=== PATIENT | female | born 1950 | race Caucasian/White ===

== ENCOUNTER 2019-06-05 08:49 | Observation (INO) | payer BC, MEDICARE ==
--- NOTE | 2019-06-05 09:52 | CR ---
INDICATION: Cough COMPARISON: none TECHNIQUE: Two view chest. FINDINGS: The lungs are clear. The heart, mediastinum and pulmonary vessels are of normal size. There is no evidence of pleural fluid. IMPRESSION: Negative chest. Dictated by Gerry Ruby MD @ Jun 05 2019 9:50AM Signed by Dr. Gerry Ruby @ Jun 05 2019 9:51AM
[2019-06-05] MEDS ORDERED: Aspirin 81 MG Tab.Chew PO ONE (10:04)
--- NOTE | 2019-06-05 10:04 | EDM.PDOC ---
ED HPI GENERAL MEDICAL PROBLEM - General Chief Complaint: Respiratory Problem Stated Complaint: COUGH Time Seen by Provider: 06/05/19 09:55 - History of Present Illness INITIAL COMMENTS - FREE TEXT/NARRATIVE: HISTORY AND PHYSICAL: History of present illness: Patient 68-year-old white female presents with a concern of shortness of breath chest pain that she describes as pleuritic worse over last 24-40 hours there's been no palpitations diaphoresis or associated nausea vomiting she denies prior UT or CVA. Review of systems: As per history of present illness and below otherwise all systems reviewed and negative. Past medical history: As per history of present illness and as reviewed below otherwise noncontributory. Surgical history: As per history of present illness and as reviewed below otherwise noncontributory. Social history: No reported history of drug or alcohol abuse. Family history: As per history of present illness and as reviewed below otherwise noncontributory. Physical exam: HEENT: Atraumatic, normocephalic, pupils reactive, negative for conjunctival pallor or scleral icterus, mucous membranes moist, throat clear, neck supple, nontender, trachea midline. Lungs: Clear to auscultation, breath sounds equal bilaterally, chest nontender. Heart: S1S2, regular, negative for clicks, rubs, or JVD. Abdomen: Soft, nondistended, nontender. Negative for masses or hepatosplenomegaly. Negative for costovertebral tenderness. Pelvis: Stable nontender. Genitourinary: Deferred. Rectal: Deferred. Extremities: Atraumatic, negative for cords or calf pain. Neurovascular unremarkable. Neuro: Awake, alert, oriented. Cranial nerves II through XII unremarkable. Cerebellum unremarkable. Motor and sensory unremarkable throughout. Exam nonfocal. Diagnostics: CBC CMP troponin PT/INR chest x-ray EKG d-dimer Therapeutics: IV O2 monitor Impression: #1 chest pain #2 dyspnea Definitive disposition and diagnosis as appropriate pending reevaluation and review of above. 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 Musculoskeletal History: Reports: None Neurological History: Reports: None Psychiatric History: Reports: None Endocrine/Metabolic History: Reports: None Dermatologic History: Reports: None - Infectious Disease History Infectious Disease History: Reports: Chicken Pox, Measles, Mumps Social & Family History - Family History Family Medical History: Noncontributory - Tobacco Use Smoking Status *Q: Current Every Day Smoker Years of Tobacco use: 45 Packs/Tins Daily: 1 - Caffeine Use Caffeine Use: Reports: Coffee - Recreational Drug Use Recreational Drug Use: No ED ROS GENERAL - Review of Systems Review Of Systems: ROS reveals no pertinent complaints other than HPI. ED EXAM, GENERAL - Physical Exam Exam: See Below (See dictation) Course - Vital Signs Last Recorded V/S: Last Vital Signs Temp 36.4 C 06/05/19 09:07 Pulse 76 06/05/19 12:06 Resp 17 06/05/19 12:06 BP 114/47 L 06/05/19 12:06 Pulse Ox 98 06/05/19 10:09 - Orders/Labs/Meds Orders: Active Orders 24 hr Category Date Time Status EKG 12 Lead [EKG Documentation Completion] [RC] STAT Care 06/05/19 09:10 Active Labs: Laboratory Tests 06/05/19 06/05/19 06/05/19 Range/Units 09:16 09:16 09:16 WBC 12.50 H (4.0-11.0) K/uL RBC 4.03 L (4.30-5.90) M/uL Hgb 13.9 (12.0-16.0) g/dL Hct 40.7 (36.0-46.0) % MCV 101.0 H (80.0-98.0) fL MCH 34.5 H (27.0-32.0) pg MCHC 34.2 (31.0-37.0) g/dL RDW Std Deviation 49.4 (28.0-62.0) fl RDW Coeff of Samy 13 (11.0-15.0) % Plt Count 167 (150-400) K/uL MPV 11.10 (7.40-12.00) fL Neut % (Auto) 77.8 (48.0-80.0) % Lymph % (Auto) 8.8 L (16.0-40.0) % [place] % (Auto) 12.6 (0.0-15.0) % Eos % (Auto) 0.6 (0.0-7.0) % Baso % (Auto) 0.2 (0.0-1.5) % Neut # (Auto) 9.7 H (1.4-5.7) K/uL Lymph # (Auto) 1.1 (0.6-2.4) K/uL [place] # (Auto) 1.6 H (0.0-0.8) K/uL Eos # (Auto) 0.1 (0.0-0.7) K/uL Baso # (Auto) 0.0 (0.0-0.1) K/uL Nucleated RBC % 0.0 /100WBC Nucleated RBCs # 0 K/uL INR D-Dimer, Quantitative 1.66 H (0.0-0.50) mg/L FEU Sodium 133 L (136-145) mmol/L Potassium 3.9 (3.5-5.1) mmol/L Chloride 99 (98-107) mmol/L Carbon Dioxide 26.6 (21.0-32.0) mmol/L BUN 7 (7.0-18.0) mg/dL Creatinine 0.7 (0.6-1.0) mg/dL Est Cr Clr Drug Dosing 59.65 mL/min Estimated GFR (MDRD) > 60.0 ml/min Glucose 114 H (74-106) mg/dL Calcium 9.5 (8.5-10.1) mg/dL Total Bilirubin 0.8 (0.2-1.0) mg/dL AST 39 H (15-37) IU/L ALT 37 (14-63) IU/L Alkaline Phosphatase 108 (46-116) U/L Troponin I < 0.050 (0.000-0.056) ng/mL Total Protein 7.0 (6.4-8.2) g/dL Albumin 3.2 L (3.4-5.0) g/dL Globulin 3.8 (2.6-4.0) g/dL Albumin/Globulin Ratio 0.8 L (0.9-1.6) 06/05/19 Range/Units 09:16 WBC (4.0-11.0) K/uL RBC (4.30-5.90) M/uL Hgb (12.0-16.0) g/dL Hct (36.0-46.0) % MCV (80.0-98.0) fL MCH (27.0-32.0) pg MCHC (31.0-37.0) g/dL RDW Std Deviation (28.0-62.0) fl RDW Coeff of Samy (11.0-15.0) % Plt Count (150-400) K/uL MPV (7.40-12.00) fL Neut % (Auto) (48.0-80.0) % Lymph % (Auto) (16.0-40.0) % [place] % (Auto) (0.0-15.0) % Eos % (Auto) (0.0-7.0) % Baso % (Auto) (0.0-1.5) % Neut # (Auto) (1.4-5.7) K/uL Lymph # (Auto) (0.6-2.4) K/uL [place] # (Auto) (0.0-0.8) K/uL Eos # (Auto) (0.0-0.7) K/uL Baso # (Auto) (0.0-0.1) K/uL Nucleated RBC % /100WBC Nucleated RBCs # K/uL INR 0.98 D-Dimer, Quantitative (0.0-0.50) mg/L FEU Sodium (136-145) mmol/L Potassium (3.5-5.1) mmol/L Chloride (98-107) mmol/L Carbon Dioxide (21.0-32.0) mmol/L BUN (7.0-18.0) mg/dL Creatinine (0.6-1.0) mg/dL Est Cr Clr Drug Dosing mL/min Estimated GFR (MDRD) ml/min Glucose (74-106) mg/dL Calcium (8.5-10.1) mg/dL Total Bilirubin (0.2-1.0) mg/dL AST (15-37) IU/L ALT (14-63) IU/L Alkaline Phosphatase (46-116) U/L Troponin I (0.000-0.056) ng/mL Total Protein (6.4-8.2) g/dL Albumin (3.4-5.0) g/dL Globulin (2.6-4.0) g/dL Albumin/Globulin Ratio (0.9-1.6) Meds: Medications Discontinued Medications Generic Name Dose Route Start Last Admin Trade Name Rafael PRN Reason Stop Dose Admin Aspirin 324 mg 06/05/19 10:04 06/05/19 10:09 Aspirin PO 06/05/19 10:05 324 mg ONETIME ONE Administration Iopamidol 50 ml 06/05/19 11:07 06/05/19 11:07 Isovue Multipack-370 (76%) IVPUSH 06/05/19 11:08 50 ml ONETIME STA Administration Departure - Departure Time of Disposition: 12:11 Disposition: Refer to Observation Condition: Good Clinical Impression: Pneumonia, Atypical chest pain - Discharge Information Referrals: PCP,None [Primary Care Provider] - Forms: ED Department Discharge - My Orders Last 24 Hours: My Active Orders 06/05/19 09:10 EKG 12 Lead [EKG Documentation Completion] [RC] STAT - Assessment/Plan Last 24 Hours: My Active Orders 06/05/19 09:10 EKG 12 Lead [EKG Documentation Completion] [RC] STAT
[2019-06-05 10:41] LABS: CHLORIDE,CL 99 mmol/L (98-107); SODIUM,NA 133 mmol/L (136-145)
[2019-06-05] MEDS ORDERED: Iopamidol 755 MG/ML 500 ML Multipack Bottle IVPUSH STA (11:07)
--- NOTE | 2019-06-05 11:42 | CT ---
INDICATION: Cough for 3 weeks and chest pressure and back pain for 2 days. D-dimer 1.66. TECHNIQUE: Contrast enhanced helical CT of the chest with the intravenous administration of 50 cc of Isovue-370. Sagittal and coronal reformats generated. Please note that all CT scans at this facility use dose modulation, iterative reconstruction and/or weight-based dosing when appropriate to reduce radiation dose to as low as reasonably achievable. FINDINGS: No obvious thyroid nodules. No suspicious axillary lymph nodes are seen with multiple small nodes noted. Scattered small bilateral hilar and mediastinal lymph nodes are nonspecific. The thoracic aorta is normal in caliber. No pulmonary emboli are identified. No pleural or pericardial effusions are seen. Scattered patchy ground-glass opacities throughout the lungs with and area of consolidation in the medial lingula. The lung bases were incompletely imaged. Mild pulmonary emphysematous changes were present. IMPRESSION: 1. No pulmonary emboli identified. 2. Scattered multi focal ground-glass opacities in area of consolidation in the medial lingula. Acute infectious or inflammatory etiologies considerations. Consider repeat high-resolution chest CT in 4-6 weeks following therapy. 3. Mild mediastinal bilateral hilar lymphadenopathy may be reactive in nature. Sarcoidosis would be an additional consideration. Please note that all CT scans at this facility use dose modulation, iterative reconstruction, and/or weight-based dosing when appropriate to reduce radiation dose to as low as reasonably achievable. Dictated by Kp Álvarez MD @ Jun 05 2019 11:32AM Signed by Dr. Kp Álvarez @ Jun 05 2019 11:40AM
[2019-06-05] MEDS ORDERED: cefTRIAXone 1 GM in Premix Bag 1 BAG IV ONE (12:11)
[2019-06-05] MEDS ORDERED: Azithromycin 500 MG in Sodium Chloride 0.9% 250 ML IV SCH (12:15)
[2019-06-05] MEDS ORDERED: Albuterol/Ipratropium 3.0-0.5 MG/3 ML Neb Soln NEB PRN (12:58)
[2019-06-05] MEDS ORDERED: Acetaminophen 325 MG Tab PO PRN (12:58)
[2019-06-05] MEDS ORDERED: Ondansetron 4 MG Tab.DIS PO PRN (12:58)
[2019-06-05] MEDS ORDERED: Enoxaparin 30 MG/0.3 ML Syringe SUBCUT SCH (13:00)
--- NOTE | 2019-06-05 13:03 | PCM.HP.2 ---
H&P History of Present Illness - General Date of Service: 06/05/19 Admit Problem/Dx: Admission Diagnosis/Problem Admission Diagnosis/Problem Pneumonia Source of Information: Patient History Limitations: Reports: No Limitations - History of Present Illness Initial Comments - Free Text/Narative: The patient is an otherwise healthy 68-year-old lady who had presented to the emergency department with inability to take a deep breath. Patient says that she has had this feeling for the past several days. She is denied any fever or chills. She has had a cough that has been productive of minimal amounts of sputum. She is a cigarette smoker. The patient has denied any nausea or vomiting. No recent travel. The patient has essentially no past medical history and only has been taking aspirin 81 mg by mouth daily. Onset of Symptoms: Reports: Gradual Duration of Symptoms: Reports: Day(s): Location: Reports: Chest Quality: Reports: Ache Severity: Mild Improves with: Reports: None Worsens with: Reports: None Associated Symptoms: Reports: cough w sputum Chest Pain Score (Numeric/FACES): 5 - Related Data Allergies/Adverse Reactions: Allergies Allergy/AdvReac Type Severity Reaction Status Date / Time No Known Allergies Allergy Verified 06/05/19 09:06 Home Medications: Home Meds Aspirin 81 mg PO DAILY 06/05/19 [History] Past Medical History HEENT History: Reports: None Cardiovascular History: Reports: None Respiratory History: Reports: None Gastrointestinal History: Reports: None Genitourinary History: Reports: None [employer]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 Musculoskeletal History: Reports: None Neurological History: Reports: None Psychiatric History: Reports: None Endocrine/Metabolic History: Reports: None Hematologic History: Reports: None Immunologic History: Reports: None Oncologic (Cancer) History: Reports: None Dermatologic History: Reports: None - Infectious Disease History Infectious Disease History: Reports: Chicken Pox, Measles, Mumps Social & Family History - Family History Family Medical History: Noncontributory - Tobacco Use Smoking Status *Q: Current Every Day Smoker Years of Tobacco use: 45 Packs/Tins Daily: 1 - Caffeine Use Caffeine Use: Reports: Coffee - Alcohol Use Alcohol Use History: Yes Alcohol Use Frequency: Daily - Recreational Drug Use Recreational Drug Use: No - Living Situation & Occupation Living situation: Reports: , with Spouse Occupation: Retired H&P Review of Systems - Review of Systems: Review Of Systems: See Below General: Reports: No Symptoms HEENT: Reports: No Symptoms Pulmonary: Reports: Shortness of Breath, Cough, Sputum Cardiovascular: Reports: Chest Pain Gastrointestinal: Reports: No Symptoms Genitourinary: Reports: No Symptoms Musculoskeletal: Reports: No Symptoms Skin: Reports: No Symptoms Psychiatric: Reports: No Symptoms Neurological: Reports: No Symptoms Hematologic/Lymphatic: Reports: No Symptoms Immunologic: Reports: No Symptoms Exam - Exam Exam: See Below - Vital Signs Vital Signs: Last Vital Signs Temp 36.4 C 06/05/19 09:07 Pulse 76 06/05/19 12:06 Resp 17 06/05/19 12:06 BP 114/47 L 06/05/19 12:06 Pulse Ox 98 06/05/19 10:09 Weight: 49.895 kg - Exam Quality Assessment: No: Supplemental Oxygen General: Alert, Oriented, Cooperative HEENT: Conjunctiva Clear, EACs Clear, EOMI, Pupils Equal, PERRLA. No: Mucosa Moist & [place] (Dry) Neck: Supple, Trachea Midline Lungs: Clear to Auscultation, Decreased Breath Sounds Cardiovascular: Regular Rate, Regular Rhythm GI/Abdominal Exam: Normal Bowel Sounds, Soft, No Distention Back Exam: Normal Inspection, Full Range of Motion Extremities: Normal Inspection, No Pedal Edema Skin: Warm, Dry, Intact Neurological: Cranial Nerves Intact, Normal Gait Neuro Extensive - Mental Status: Alert, Oriented x3 Psychiatric: Alert, Normal Affect - Patient Data Lab Results Last 24 hrs: Laboratory Results - last 24 hr 06/05/19 06/05/19 06/05/19 Range/Units 09:16 09:16 09:16 WBC 12.50 H (4.0-11.0) K/uL RBC 4.03 L (4.30-5.90) M/uL Hgb 13.9 (12.0-16.0) g/dL Hct 40.7 (36.0-46.0) % MCV 101.0 H (80.0-98.0) fL MCH 34.5 H (27.0-32.0) pg MCHC 34.2 (31.0-37.0) g/dL RDW Std Deviation 49.4 (28.0-62.0) fl RDW Coeff of Samy 13 (11.0-15.0) % Plt Count 167 (150-400) K/uL MPV 11.10 (7.40-12.00) fL Neut % (Auto) 77.8 (48.0-80.0) % Lymph % (Auto) 8.8 L (16.0-40.0) % [place] % (Auto) 12.6 (0.0-15.0) % Eos % (Auto) 0.6 (0.0-7.0) % Baso % (Auto) 0.2 (0.0-1.5) % Neut # (Auto) 9.7 H (1.4-5.7) K/uL Lymph # (Auto) 1.1 (0.6-2.4) K/uL [place] # (Auto) 1.6 H (0.0-0.8) K/uL Eos # (Auto) 0.1 (0.0-0.7) K/uL Baso # (Auto) 0.0 (0.0-0.1) K/uL Nucleated RBC % 0.0 /100WBC Nucleated RBCs # 0 K/uL INR D-Dimer, Quantitative 1.66 H (0.0-0.50) mg/L FEU Sodium 133 L (136-145) mmol/L Potassium 3.9 (3.5-5.1) mmol/L Chloride 99 (98-107) mmol/L Carbon Dioxide 26.6 (21.0-32.0) mmol/L BUN 7 (7.0-18.0) mg/dL Creatinine 0.7 (0.6-1.0) mg/dL Est Cr Clr Drug Dosing 59.65 mL/min Estimated GFR (MDRD) > 60.0 ml/min Glucose 114 H (74-106) mg/dL Calcium 9.5 (8.5-10.1) mg/dL Total Bilirubin 0.8 (0.2-1.0) mg/dL AST 39 H (15-37) IU/L ALT 37 (14-63) IU/L Alkaline Phosphatase 108 (46-116) U/L Troponin I < 0.050 (0.000-0.056) ng/mL Total Protein 7.0 (6.4-8.2) g/dL Albumin 3.2 L (3.4-5.0) g/dL Globulin 3.8 (2.6-4.0) g/dL Albumin/Globulin Ratio 0.8 L (0.9-1.6) 06/05/19 Range/Units 09:16 WBC (4.0-11.0) K/uL RBC (4.30-5.90) M/uL Hgb (12.0-16.0) g/dL Hct (36.0-46.0) % MCV (80.0-98.0) fL MCH (27.0-32.0) pg MCHC (31.0-37.0) g/dL RDW Std Deviation (28.0-62.0) fl RDW Coeff of Samy (11.0-15.0) % Plt Count (150-400) K/uL MPV (7.40-12.00) fL Neut % (Auto) (48.0-80.0) % Lymph % (Auto) (16.0-40.0) % [place] % (Auto) (0.0-15.0) % Eos % (Auto) (0.0-7.0) % Baso % (Auto) (0.0-1.5) % Neut # (Auto) (1.4-5.7) K/uL Lymph # (Auto) (0.6-2.4) K/uL [place] # (Auto) (0.0-0.8) K/uL Eos # (Auto) (0.0-0.7) K/uL Baso # (Auto) (0.0-0.1) K/uL Nucleated RBC % /100WBC Nucleated RBCs # K/uL INR 0.98 D-Dimer, Quantitative (0.0-0.50) mg/L FEU Sodium (136-145) mmol/L Potassium (3.5-5.1) mmol/L Chloride (98-107) mmol/L Carbon Dioxide (21.0-32.0) mmol/L BUN (7.0-18.0) mg/dL Creatinine (0.6-1.0) mg/dL Est Cr Clr Drug Dosing mL/min Estimated GFR (MDRD) ml/min Glucose (74-106) mg/dL Calcium (8.5-10.1) mg/dL Total Bilirubin (0.2-1.0) mg/dL AST (15-37) IU/L ALT (14-63) IU/L Alkaline Phosphatase (46-116) U/L Troponin I (0.000-0.056) ng/mL Total Protein (6.4-8.2) g/dL Albumin (3.4-5.0) g/dL Globulin (2.6-4.0) g/dL Albumin/Globulin Ratio (0.9-1.6) Result Diagrams: 06/05/19 09:16 06/05/19 09:16 - Problem List (1) Pneumonia SNOMED Code(s): 788491653 ICD Code: J18.9 - PNEUMONIA, UNSPECIFIED ORGANISM Status: Acute Priority : High Current Visit: Yes Qualifiers: Pneumonia type: due to unspecified organism Laterality: bilateral Lung location: unspecified part of lung Qualified Code(s): J18.9 - Pneumonia, unspecified organism (2) Atypical chest pain SNOMED Code(s): 399779954 ICD Code: R07.89 - OTHER CHEST PAIN Status: Acute Priority: High Current Visit: Yes (3) Elevated d-dimer SNOMED Code(s): 881150484 ICD Code: R79.89 - OTHER SPECIFIED ABNORMAL FINDINGS OF BLOOD CHEMISTRY Status: Acute Priority: High Current Visit: Yes (4) Tobacco use SNOMED Code(s): 424600877 ICD Code: Z72.0 - TOBACCO USE Status: Chronic Priority: High Current Visit: Yes Problem List Initiated/Reviewed/Updated: Yes Orders Last 24hrs: Active Orders 24 hr Category Date Time Status Patient Status [ADT] Stat ADT 06/05/19 12:12 Active EKG 12 Lead [EKG Documentation Completion] [RC] STAT Care 06/05/19 09:10 Active Oxygen Therapy [RC] PRN Care 06/05/19 12:52 Ordered Oxygen Therapy [RC] PRN Care 06/05/19 12:58 Ordered RT Aerosol Therapy [RC] ASDIRECTED Care 06/05/19 13:00 Ordered Up ad Brigid [RC] ASDIRECTED Care 06/05/19 12:52 Ordered VTE/DVT Education [RC] PER UNIT ROUTINE Care 06/05/19 12:52 Ordered VTE/DVT Education [RC] PER UNIT ROUTINE Care 06/05/19 12:58 Ordered Vital Signs [RC] Q4H Care 06/05/19 12:52 Ordered Vital Signs [RC] Q4H Care 06/05/19 12:58 Ordered Regular Diet [DIET] Diet 06/05/19 Dinner Ordered CBC WITH AUTO DIFF [HEME] AM Lab 06/06/19 05:11 Ordered COMPREHENSIVE METABOLIC PN,CMP [CHEM] AM Lab 06/06/19 05:11 Ordered CULTURE BLOOD [BC] Stat Lab 06/05/19 12:17 Ordered CULTURE BLOOD [BC] Stat Lab 06/05/19 12:35 Received Acetaminophen [Tylenol] Med 06/05/19 12:58 Ordered 650 mg PO Q4H PRN Albuterol/Ipratropium [DuoNeb 3.0-0.5 MG/3 ML] Med 06/05/19 12:58 Ordered 3 ml NEB Q4HRRT PRN Aspirin Med 06/06/19 09:00 Ordered 81 mg PO DAILY Azithromycin [Zithromax] 500 mg Med 06/05/19 12:15 Active Sodium Chloride 0.9% [Normal Saline (AdvBag)] 250 ml IV ONETIME Enoxaparin [Lovenox] Med 06/05/19 13:00 Ordered 30 mg SUBCUT Q24H Nicotine [Habitrol] Med 06/05/19 13:00 Ordered 14 mg TRDERM DAILY Ondansetron [Zofran ODT] Med 06/05/19 12:58 Ordered 4 mg PO Q4H PRN Sodium Chloride 0.9% [Normal Saline] 1,000 ml Med 06/05/19 13:00 Ordered IV ASDIRECTED cefTRIAXone [Rocephin] 1 gm Med 06/06/19 09:00 Ordered Sodium Chloride 0.9% [Normal Saline] 50 ml IV Q24H Blood Culture x2 Reflex Set [OM.PC] Stat Oth 06/05/19 12:16 Ordered Resuscitation Status Routine Resus Stat 06/05/19 12:52 Ordered Medication Orders Acetaminophen (Tylenol) 650 mg PO Q4H PRN PRN Reason: Pain (Mild 1-3)/fever Albuterol/Ipratropium (Duoneb 3.0-0.5 Mg/3 Ml) 3 ml NEB Q4HRRT PRN PRN Reason: Shortness Of Breath/wheezing Aspirin (Aspirin) 81 mg PO DAILY CALLIE Enoxaparin Sodium (Lovenox) 30 mg SUBCUT Q24H CALLIE Azithromycin 500 mg/ Sodium (Chloride) 250 mls @ 250 mls/hr IV ONETIME CALLIE Sodium Chloride (Normal Saline) 1,000 mls @ 75 mls/hr IV ASDIRECTED CALLIE Ceftriaxone Sodium 1 gm/ (Sodium Chloride) 50 mls @ 100 mls/hr IV Q24H [facility] Nicotine (Habitrol) 14 mg TRDERM DAILY [facility] Ondansetron HCl (Zofran Odt) 4 mg PO Q4H PRN PRN Reason: nausea, able to take PO Assessment/Plan Comment:: The patient also notes otherwise healthy 68-year-old lady who has been admitted secondary to pneumonia which is likely atypical. The patient has been started on Rocephin and this will be restarted. The patient also has been given a nicotine patch 14 mg transdermal daily to assist with tobacco withdrawal. I have reviewed the CT scan and this is indicated several areas of patchy infiltrates in different lobes. It has been recommended that patient follow up with primary care physician and at least 6-8 weeks in order to repeat CT scan to help exclude neoplastic process. There is concern for her d-dimer being elevated and there is no evidence of pulmonary emboli on the CT scan. The patient will also be anticoagulated with Lovenox 30 mg subcutaneous on a daily basis. Repeat laboratory studies have been ordered. The patient should be appropriate for discharge tomorrow. She does not require oxygen support at this time. - Mortality Measure Prognosis:: Good
[2019-06-05] MEDS: Sodium Chloride 0.9% 1,000 ML IV SCH (13:40)
[2019-06-05] MEDS: Nicotine 14 MG/24 Hr Patch TRDERM SCH (14:34)
[2019-06-05] MEDS: Codeine/guaiFENesin 100-10 MG/5 ML Syrup 5 ML Cup PO PRN (21:30)
[2019-06-06] MEDS: Codeine/guaiFENesin 100-10 MG/5 ML Syrup 5 ML Cup PO PRN (03:38)
[2019-06-06] MEDS: Sodium Chloride 0.9% 1,000 ML IV SCH (03:44)
[2019-06-06 07:08] LABS: CHLORIDE,CL 105 mmol/L (98-107); SODIUM,NA 140 mmol/L (136-145)
--- NOTE | 2019-06-06 07:56 | PCM.DCSUM1 ---
Discharge Summary - Hospital Course Free Text/Narrative:: Multifocal pneumonia, shortness of breath Diagnosis: Stroke: No - Discharge Data Discharge Date: 06/06/19 Discharge Disposition: Home, Self-Care 01 Condition: Good - Discharge Diagnosis/Problem(s) (1) Pneumonia SNOMED Code(s): 797320956 ICD Code: J18.9 - PNEUMONIA, UNSPECIFIED ORGANISM Status: Acute Priority : High Current Visit: Yes Qualifiers: Pneumonia type: due to unspecified organism Laterality: bilateral Lung location: unspecified part of lung Qualified Code(s): J18.9 - Pneumonia, unspecified organism (2) Atypical chest pain SNOMED Code(s): 805490596 ICD Code: R07.89 - OTHER CHEST PAIN Status: Resolved Priority: High Current Visit: Yes (3) Elevated d-dimer SNOMED Code(s): 078824761 ICD Code: R79.89 - OTHER SPECIFIED ABNORMAL FINDINGS OF BLOOD CHEMISTRY Status: Acute Priority: High Current Visit: Yes (4) Tobacco use SNOMED Code(s): 463619362 ICD Code: Z72.0 - TOBACCO USE Status: Chronic Priority: High Current Visit: Yes - Patient Summary/Data Hospital Course: The patient is an otherwise healthy 68-year-old lady who presented to the emergency department with an inability to take a deep breath and said that she had had this feeling for past several days. During the patient's hospitalization she has not required oxygen support. The patient also had a CT scan of her chest to help exclude pulmonary emboli due to elevated d-dimer and this did not show any pulmonary emboli. There was however noted scattered multifocal groundglass opacities in the medial lingula thought to be acute infectious or inflammatory considerations. As recommended that the patient have a high CT contrast within 4-6 weeks to help exclude neoplasm. The patient initially had been started on Rocephin and she had tolerated this well. The patient also had albuterol/Atrovent SVNs and this had improved her symptomology. Cultures thus far are negative. During the short course of hospitalization the patient had continued to improve. She had been ambulating well. The patient said that her breathing had improved. She felt like she can go home. The patient will be discharged home with Levaquin 500 mg by mouth daily for the next 5 days as well as codeine and Phenergan cough syrup to help suppress her cough and alleviate some pain. The patient has been tolerating her diet and she is recommended to continue with her heart healthy diet as tolerated. The patient is also have activity as tolerated. Further, it is recommended that the patient have a PFT as follow-up with her primary care physician once she has improved to her baseline. It is also been recommended that she have repeat CT scan in 4-6 weeks. She has been hemodynamically stable and she has been discharged from acute hospitalization with the recommendations listed above. - Patient Instructions Diet: Heart Healthy Diet Activity: As Tolerated - Discharge Plan *PRESCRIPTION DRUG MONITORING PROGRAM REVIEWED*: No *COPY OF PRESCRIPTION DRUG MONITORING REPORT IN PATIENT ALONDRA: No Prescriptions/Med Rec: Codeine/guaiFENesin [Robitussin AC] 5 ml PO Q6H PRN #118 ml PRN Reason: Cough levoFLOXacin [Levaquin] 500 mg PO DAILY #5 tab Home Medications: Home Meds Aspirin 81 mg PO DAILY 06/05/19 [History] Codeine/guaiFENesin [Robitussin AC] 5 ml PO Q6H PRN #118 ml 06/06/19 [Rx] levoFLOXacin [Levaquin] 500 mg PO DAILY #5 tab 06/06/19 [Rx] Oxygen Therapy Mode: Room Air Patient Handouts: Levofloxacin tablets, Codeine; Guaifenesin oral solution or syrup, Community-Acquired Pneumonia, Adult, [id number] Referrals: Michelle Guaman MD [Physician] - 06/17/19 8:00 am - Discharge Summary/Plan Comment DC Time >30 min.: Yes - General Info Date of Service: 06/06/19 Admission Dx/Problem (Free Text: Admission Diagnosis/Problem Admission Diagnosis/Problem Pneumonia, multifocal Functional Status: Reports: Pain Controlled - Review of Systems General: Reports: No Symptoms HEENT: Reports: No Symptoms Pulmonary: Reports: No Symptoms Cardiovascular: Reports: No Symptoms Gastrointestinal: Reports: No Symptoms Genitourinary: Reports: No Symptoms Musculoskeletal: Reports: No Symptoms Skin: Reports: No Symptoms Neurological: Reports: No Symptoms Psychiatric: Reports: No Symptoms - Patient Data Vitals - Most Recent: Last Vital Signs Temp 36.7 C 06/06/19 07:15 Pulse 71 06/06/19 07:15 Resp 16 06/06/19 07:15 BP 101/50 L 06/06/19 07:15 Pulse Ox 96 08/23/19 07:15 Weight - Most Recent: 50.519 kg I&O - Last 24 hours: Intake & Output 06/05/19 06/06/19 06/06/19 22:59 06:59 14:59 Intake Total 718 2735 Output Total 0 2300 Balance 718 435 Lab Results - Last 24 hrs: Laboratory Results - last 24 hr 06/05/19 06/05/19 06/05/19 Range/Units 09:16 09:16 09:16 WBC 12.50 H (4.0-11.0) K/uL RBC 4.03 L (4.30-5.90) M/uL Hgb 13.9 (12.0-16.0) g/dL Hct 40.7 (36.0-46.0) % MCV 101.0 H (80.0-98.0) fL MCH 34.5 H (27.0-32.0) pg MCHC 34.2 (31.0-37.0) g/dL RDW Std Deviation 49.4 (28.0-62.0) fl RDW Coeff of Samy 13 (11.0-15.0) % Plt Count 167 (150-400) K/uL MPV 11.10 (7.40-12.00) fL Neut % (Auto) 77.8 (48.0-80.0) % Lymph % (Auto) 8.8 L (16.0-40.0) % [place] % (Auto) 12.6 (0.0-15.0) % Eos % (Auto) 0.6 (0.0-7.0) % Baso % (Auto) 0.2 (0.0-1.5) % Neut # (Auto) 9.7 H (1.4-5.7) K/uL Lymph # (Auto) 1.1 (0.6-2.4) K/uL [place] # (Auto) 1.6 H (0.0-0.8) K/uL Eos # (Auto) 0.1 (0.0-0.7) K/uL Baso # (Auto) 0.0 (0.0-0.1) K/uL Nucleated RBC % 0.0 /100WBC Nucleated RBCs # 0 K/uL INR D-Dimer, Quantitative 1.66 H (0.0-0.50) mg/L FEU Sodium 133 L (136-145) mmol/L Potassium 3.9 (3.5-5.1) mmol/L Chloride 99 (98-107) mmol/L Carbon Dioxide 26.6 (21.0-32.0) mmol/L BUN 7 (7.0-18.0) mg/dL Creatinine 0.7 (0.6-1.0) mg/dL Est Cr Clr Drug Dosing 59.65 mL/min Estimated GFR (MDRD) > 60.0 ml/min Glucose 114 H (74-106) mg/dL Calcium 9.5 (8.5-10.1) mg/dL Total Bilirubin 0.8 (0.2-1.0) mg/dL AST 39 H (15-37) IU/L ALT 37 (14-63) IU/L Alkaline Phosphatase 108 (46-116) U/L Troponin I < 0.050 (0.000-0.056) ng/mL Total Protein 7.0 (6.4-8.2) g/dL Albumin 3.2 L (3.4-5.0) g/dL Globulin 3.8 (2.6-4.0) g/dL Albumin/Globulin Ratio 0.8 L (0.9-1.6) 06/05/19 06/06/19 06/06/19 Range/Units 09:16 06:15 06:15 WBC 11.10 H (4.0-11.0) K/uL RBC 3.51 L (4.30-5.90) M/uL Hgb 11.9 L (12.0-16.0) g/dL Hct 35.6 L (36.0-46.0) % MCV 101.4 H (80.0-98.0) fL MCH 33.9 H (27.0-32.0) pg MCHC 33.4 (31.0-37.0) g/dL RDW Std Deviation 49.5 (28.0-62.0) fl RDW Coeff of Samy 13 (11.0-15.0) % Plt Count 168 (150-400) K/uL MPV 10.90 (7.40-12.00) fL Neut % (Auto) 72.5 (48.0-80.0) % Lymph % (Auto) 12.4 L (16.0-40.0) % [place] % (Auto) 13.2 (0.0-15.0) % Eos % (Auto) 1.5 (0.0-7.0) % Baso % (Auto) 0.4 (0.0-1.5) % Neut # (Auto) 8.1 H (1.4-5.7) K/uL Lymph # (Auto) 1.4 (0.6-2.4) K/uL [place] # (Auto) 1.5 H (0.0-0.8) K/uL Eos # (Auto) 0.2 (0.0-0.7) K/uL Baso # (Auto) 0.0 (0.0-0.1) K/uL Nucleated RBC % 0.0 /100WBC Nucleated RBCs # 0 K/uL INR 0.98 D-Dimer, Quantitative (0.0-0.50) mg/L FEU Sodium 140 (136-145) mmol/L Potassium 4.0 (3.5-5.1) mmol/L Chloride 105 (98-107) mmol/L Carbon Dioxide 25.6 (21.0-32.0) mmol/L BUN 6 L (7.0-18.0) mg/dL Creatinine 0.7 (0.6-1.0) mg/dL Est Cr Clr Drug Dosing 62.53 mL/min Estimated GFR (MDRD) > 60.0 ml/min Glucose 110 H (74-106) mg/dL Calcium 9.0 (8.5-10.1) mg/dL Total Bilirubin 0.5 (0.2-1.0) mg/dL AST 23 (15-37) IU/L ALT 34 (14-63) IU/L Alkaline Phosphatase 106 (46-116) U/L Troponin I (0.000-0.056) ng/mL Total Protein 6.2 L (6.4-8.2) g/dL Albumin 2.7 L (3.4-5.0) g/dL Globulin 3.5 (2.6-4.0) g/dL Albumin/Globulin Ratio 0.8 L (0.9-1.6) GLENN Results - Last 24 hrs: Microbiology 06/05/19 12:45 Anaerobic Blood Culture - Final Blood - Venous - Lab Draw Med Orders - Current: Current Medications Acetaminophen (Tylenol) 650 mg PO Q4H PRN PRN Reason: Pain (Mild 1-3)/fever Last Admin: 06/06/19 03:38 Dose: 650 mg Albuterol/Ipratropium (Duoneb 3.0-0.5 Mg/3 Ml) 3 ml NEB Q4HRRT PRN PRN Reason: Shortness Of Breath/wheezing Last Admin: 06/06/19 03:40 Dose: 3 ml Aspirin (Aspirin) 81 mg PO DAILY CALLIE Enoxaparin Sodium (Lovenox) 30 mg SUBCUT Q24H CALLIE Last Admin: 06/05/19 14:34 Dose: 30 mg Guaifenesin/Codeine Phosphate (Robitussin Ac) 5 ml PO Q6H PRN PRN Reason: Cough Last Admin: 06/06/19 03:38 Dose: 5 ml Azithromycin 500 mg/ Sodium (Chloride) 250 mls @ 250 mls/hr IV ONETIME CALLIE Last Admin: 06/05/19 15:55 Dose: 250 mls/hr Sodium Chloride (Normal Saline) 1,000 mls @ 75 mls/hr IV ASDIRECTED [facility] Last Admin: 06/06/19 03:44 Dose: 75 mls/hr Ceftriaxone Sodium/Dextrose 1 (gm/ Premix) 50 mls @ 100 mls/hr IV Q24H [facility] Nicotine (Habitrol) 14 mg TRDERM DAILY [facility] Last Admin: 06/05/19 14:34 Dose: 14 mg Ondansetron HCl (Zofran Odt) 4 mg PO Q4H PRN PRN Reason: nausea, able to take PO Discontinued Medications Aspirin (Aspirin) 324 mg PO ONETIME ONE Stop: 06/05/19 10:05 Last Admin: 06/05/19 10:09 Dose: 324 mg Ceftriaxone Sodium/Dextrose 1 (gm/ Premix) 50 mls @ 100 mls/hr IV ONETIME ONE Stop: 06/05/19 12:40 Last Admin: 06/05/19 13:06 Dose: 100 mls/hr Iopamidol (Isovue Multipack-370 (76%)) 50 ml IVPUSH ONETIME STA Stop: 06/05/19 11:08 Last Admin: 06/05/19 11:07 Dose: 50 ml - Exam Quality Assessment: Denies: Supplemental Oxygen General: Reports: Alert, Oriented, Cooperative, No Acute Distress HEENT: Reports: Pupils Equal, Pupils Reactive, EOMI, Mucous Membr. Moist/[place] Neck: Reports: Supple, Trachea Midline Lungs: Reports: Clear to Auscultation, Normal Respiratory Effort Cardiovascular: Reports: Regular Rate, Regular Rhythm GI/Abdominal Exam: Normal Bowel Sounds, Soft, No Distention Back Exam: Reports: Normal Inspection, Full Range of Motion Extremities: Normal Inspection, No Pedal Edema Skin: Reports: Warm, Dry, Intact Neurological: Reports: No New Focal Deficit Psy/Mental Status: Reports: Alert, Normal Affect, Normal Mood
[2019-06-06] MEDS: Nicotine 14 MG/24 Hr Patch TRDERM SCH (08:40)
[2019-06-06] MEDS ORDERED: cefTRIAXone 1 GM in Premix Bag 1 BAG IV SCH (09:00)
[2019-06-06] MEDS ORDERED: Aspirin 81 MG Tab.Chew PO SCH (09:00)
== END 2019-06-06 12:50 | disposition home or self-care (01) ==
LOC: MW.ED 08:49 → MW.MS 12:59
PROVIDERS: ADMIT Internal Medicine; ATTEND Internal Medicine
DX: J18.9 Pneumonia, unspecified organism (principal); R07.89 Other chest pain; R79.89 Other specified abnormal findings of blood chemistry; F17.210 Nicotine dependence, cigarettes, uncomplicated; Z79.82 Long term (current) use of aspirin
CPT/HCPCS: 36415; 71046; 71275; 80053; 84484; 85025; 85379; 85610; 87040; 93005; 96374; 99285; A9270; J0456; J0696; J1650; J7040; J7050; Q9967; 96361; 96366; 96367; 96372; 96375; 96376; G0378; J7620-GY